=== PATIENT | male | born 1960 ===

== ENCOUNTER 2024-09-15 15:47 | Inpatient (IN) | payer MEDICAID, SELFPAY ==
[2024-09-15] VITALS (163 sets, daily range): BP systolic 146–219; BP diastolic 52–96; PULSE 61–76; RESP 13–26; TEMP 36.8; O2SAT 95–98
--- NOTE | 2024-09-15 15:45 | RT.EKG_ITS ---
APPROVED REPORT Exam: Resting ECG Reason for Exam: weakness Patient Location: E HR:71 bpm ECG Measurements Heart Rate 71 AXIS OK 141 P 61 QRSd 83 QRS 53 QT 406 T 212 QTc 440 Conclusion Sinus rhythm, rate 71 No interval abnormalities No STEMI T wave inversion diffuse leads, no priors available for comparison
--- NOTE | 2024-09-15 16:00 | DI.RAD_ITS ---
Exam(s) XR CHEST 2V PA LATERAL EXAM: XR CHEST 2V PA LATERAL CLINICAL HISTORY: dizziness during ambulation TECHNIQUE: 2D digital imaging was performed of the chest. Two images were obtained. PA and lateral views were obtained. COMPARISON: No exams were available for comparison FINDINGS: MEDIASTINUM: Normal. HEART: Normal. PULMONARY VASCULATURE: Normal. LUNGS: Clear. PLEURAL SPACE: No pleural effusion or pneumothorax. BONE:Within normal limits for the patient's age. There are old healed left rib fractures. There is an old healed left clavicular fracture. OTHER FINDINGS:Normal. IMPRESSION: No acute pulmonary findings. DATA REPOSITORY: RADIATION DOSE DELIVERED:
--- NOTE | 2024-09-15 16:23 | ED.GENADUL_ITS ---
Discharge Plan Discharge Details Chief Complaint: Dizzy/Sync Primary Care Provider: Nila,Local ED Provider: Alma Yao Home Meds and New Rx's Prescriptions: No Action No Known Home Meds HPI General Date/Time Provider Initiated Documentation: 09/15/24 15:51 . HPI Narrative: Venkat is a 63year old male who presents to the emergency department today for evaluation of generalized dizziness (described as all over weakness like he can't stay up). He reports that this started on Wednesday night when he was shoveling snow. He feels fine when he is sitting, but feels generally weak and has trouble walking, says he feels like he cannot stay upright. No other aggravating factors identified. Denies associated fever/chills, unusual headaches, vision changes, congestion, sore throat, chest pain, shortness of breath, dyspnea with exertion, cough, nausea/vomiting, change in p.o. intake, abdominal pain, change in bowel or bladder function, extremity weakness. He has not seen a medical provider in at least 5 years, has no known chronic medical conditions. He does drink a 12 pack of beer (12 oz cans) every night starting at 3 PM; says this has been ongoing for a long time. Also smokes cigarettes. Denies other substance use. Physical exam unremarkable. Venkat is alert and oriented x 4, in no acute distress. PERRL, EOMs intact. Facial strength normal. Moist mucous membranes. Normal finger to finger, rapid alternating movements, patellar reflexes 2+, 5/5 muscle strength to upper and lower extremities, sensation grossly intact. Mitra l heart sounds. Easy work of breathing, lung sounds clear bilaterally. Abdomen is soft, nondistended, nontender to palpation. On ambulation Venkat is noted to have a wide-based gait and begins to list to the right after approximately 10 steps. Hypertension noted at triage, 194/95. D/dx includes but is not limited to: CVA (outside window for thrombolysis), neoplasm/mass, Cardiac arrhythmia, ACS, severe anemia, kidney or liver dysfunction, electrolyte imbalance, dehydration, viral illness, occult infection such as pneumonia or UTI I independently interpreted the following tests: EKG notable for diffuse inverted T waves to leads II, III, V5, and V6, otherwise normal sinus rhythm with rate 71, normal intervals. No previous available for comparison. Labs all reassuring: CBC, CMP, magnesium, TSH, ammonia all unremarkable. Troponins flat. CTA performed, significant for severe stenosis of the right ICA and origin of the left subclavian artery. Discussed case with [place]ene[place]rologist [place] [facility] [place] he reviewed patient's images and evaluated patient. He does not believe stenosis is the cause of acute symptoms, recommends admission for telemetry, physical therapy, and MRI. Recommends as pirin 81 mg and Plavix 300 mg for this evening. Discussed case with Dr. Rodriguez, hospitalist. Recommends transfer for neurology/vascular for further evaluation/management due to severe stenosis noted on CTA. 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 Handoff report given to Dr. Cutler, overnight attending. Related Data Home Medications ?Medication ?Instructions ?Recorded ?Confirmed Unknown [No Known Home Meds] 09/15/24 09/15/24 Allergies Allergy/AdvReac Type Severity Reaction Status Date / Time No Known Allergies Allergy Unverified 09/15/24 16:02 General Stated Complaint: Dizzy/Sync MARITZA: 3 Review of Systems Narrative: see HPI Exam Const General: cooperative, comfortable, no acute distress and well developed Nutritional Appearance: average body habitus Orientation: alert and oriented x3 HENMT Head: normal to inspection Ears: hearing grossly normal bilaterally, external ears normal and TM's normal bilaterally General nose exam: external nose normal Face and sinus: normal facial exam and face symmetric Mouth: oral mucosae normal Neck Neck: normal visual inspection Resp Effort & Inspection: normal respiratory effort and able to speak in complete sentences Auscultation: clear to auscultation bilaterally Cardio Rate: regular rate Rhythm: regular rhythm GI Inspection: normal to inspection and non-distended Palpation: soft, not firm, not rigid and nontender Neuro General: patient alert, patient oriented x3, tone normal, moves all extremities and no focal motor deficits Cranial Nerves: PERRL, EOM intact bilaterally, no nystagmus and facial strength normal Cognition: normal cognition Speech: speech normal Gait: wide-based and other (listing towards R side when walking, poor balance) Motor: muscle tone normal throughout and strength 5/5 throughout Sensory Exam: no sensory deficits noted Coordination: [id number] test normal and rapid alternating movement UE normal Extrem General: normal to inspection Course Vital Signs Vital signs: Vital Signs Temperature 36.8 C 09/15/24 15:51 Pulse 71 09/15/24 15:51 Respiratory Rate 20 09/15/24 15:51 Blood Pressure 194/95 H 09/15/24 15:51 Pulse Oximetry 95 09/15/24 15:51 Temperature 36.8 C 09/15/24 15:51 Pulse 71 09/15/24 15:51 Respiratory Rate 20 09/15/24 15:51 Blood Pressure 194/95 H 09/15/24 15:51 Pulse Oximetry 95 09/15/24 15:51 Pain Level 0 09/15/24 15:51 Medical Decision Making Imaging Data Radiologic Study: Radiologist's impression: Exam(s) XR CHEST 2V PA LATERAL EXAM: XR CHEST 2V PA LATERAL CLINICAL HISTORY: dizziness during ambulation TECHNIQUE: 2D digital imaging was performed of the chest. Two images were obtained. PA and lateral views were obtained. COMPARISON: No exams were available for comparison FINDINGS: MEDIASTINUM: Normal. HEART: Normal. PULMONARY VASCULATURE: Normal. LUNGS: Clear. PLEURAL SPACE: No pleural effusion or pneumothorax. BONE:Within normal limits for the patient's age. There are old healed left rib fractures. There is an old healed left clavicular fracture. OTHER FINDINGS:Normal. IMPRESSION: No acute pulmonary findings. Radiologic Study #2: Radiologist's impression: PROCEDURE INFORMATION: Exam: CTA Head Without And With Contrast, Arteriography Exam date and time: 09/15/2024 6:39 PM Age: 63 years old Clinical indication: Other: Abnormal gait, dizziness, leaning to R side TECHNIQUE: Imaging protocol: Computed tomographic angiography of the head without and with contrast. Exam focused on the arteries. 3D rendering (Not supervised by radiologist): MIP and/or 3D reconstructed images were created by the technologist. Contrast material: OMNIPAQUE 350; Contrast volume: 70 ml; Contrast route: INTRAVENOUS (IV); COMPARISON: No relevant prior studies available. FINDINGS: ANTERIOR CIRCULATION: Right internal carotid artery: Intracranial segment is patent with no significant stenosis or occlusion. No aneurysm. Right middle cerebral artery: No occlusion or significant stenosis. No aneurysm. Right anterior cerebral artery: No occlusion or significant stenosis. No aneurysm. Left internal carotid artery: Intracranial segment is patent with no significant stenosis. No aneurysm. Left middle cerebral artery: No occlusion or significant stenosis. No aneurysm. Left anterior cerebral artery: No occlusion or significant stenosis. No aneurysm. POSTERIOR CIRCULATION: Right vertebral artery: No occlusion or significant stenosis. No aneurysm. Left vertebral artery: No occlusion or significant stenosis. No aneurysm. Basilar artery: No occlusion or significant stenosis. No aneurysm. Right posterior cerebral artery: No occlusion or significant stenosis. No aneurysm. Left posterior cerebral artery: No occlusion or significant stenosis. No aneurysm. HEAD: Brain: Normal. No hemorrhage. Unremarkable white matter. No mass effect. Cerebral ventricles: Normal. No ventriculomegaly. Bones: Unremarkable. No acute fracture. Paranasal sinuses: Visualized sinuses are normal. No fluid levels. Mastoid air cells: Visualized mastoids are normal. No mastoid effusion. Soft tissues: Unremarkable. IMPRESSION: 1. No large vessel occlusion. 2. Unremarkable CT head. PROCEDURE INFORMATION: Exam: CTA Neck Without And With Contrast Exam date and time: 09/15/2024 6:39 PM Age: 63 years old Clinical indication: Other: Abnormal gait, dizziness, leaning to R side TECHNIQUE: Imaging protocol: Computed tomographic angiography of the neck without and with contrast. Exam focused on the cervical segments of the vasculature. 3D rendering (Not supervised by radiologist): MIP and/or 3D reconstructed images were created by the technologist. Contrast material: OMNIPAQUE 350; Contrast volume: 70 ml; Contrast route: INTRAVENOUS (IV); COMPARISON: CR XR CHEST 2V PA LATERAL 09/15/2024 4:48 PM FINDINGS: Right common carotid artery: No stenosis. No dissection or occlusion. Right internal carotid artery: There is severe (approximately 75%) stenosis in the proximal right internal carotid artery. Right external carotid artery: No occlusion or stenosis of the origin. Left common carotid artery: No stenosis. No dissection or occlusion. Left internal carotid artery: No stenosis of the extracranial segment. No dissection or occlusion. Left external carotid artery: No occlusion or stenosis of the origin. Right vertebral artery: No stenosis. No dissection or occlusion. Left vertebral artery: No stenosis. No dissection or occlusion. Left subclavian artery: There is severe (approximately 70%) stenosis of the origin of the left subclavian artery. Soft tissues: Normal. No significant soft tissue swelling. Bones/joints: Mild degenerative changes at the C3-C4 disc level. Cervical spine is otherwise unremarkable. IMPRESSION: 1. Severe stenosis of the right ICA. No significant stenosis in the left ICA 2. Patent bilateral vertebral arteries 3. 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 REFERENCES: NASCET CRITERIA. The degree of jessica nosis in the cervical segment of the internal carotid artery is based on NASCET criteria. Normal is no stenosis. Mild is less than 50% stenosis. Moderate is 50- 69% stenosis. Severe is 70% to 99% stenosis. Total occlusion is no detectable patent lumen. Quality:[facility] Health Related Social Needs: No Data to Display [facility] Social History Smoking/Tobacco Use Status: Current every day Tobacco Type: cigarettes Smoking packs per day: 50 Smoking cigarettes per day: 1,000.0 Tobacco: How many years used: 50 Smoking risk assessment performed?: Yes Alcohol Intake: current Alcohol Intake frequency: 3 or more drinks per day Alcohol type: beer Drug use: Never
[2024-09-15 16:41] LABS: Abs Immature Grans 0.03 10^3/uL (0.0-0.06); Absolute Basophil Count 0.05 10^3/uL (0.0-0.2); Absolute Eosinophil Count 0.09 10^3/uL (0.0-0.7); Absolute Lymphocyte Count 1.33 10^3/uL (1.2-3.4); Absolute Monocyte Count 0.74 10^3/uL (0.1-0.8); Absolute Neutrophil Count 6.07 10^3/uL (1.2-6.7); Basophils % 0.6 %; Eosinophils % 1.1 %; HCT 48.2 % (40.0-50.0); HGB 16.3 g/dL (13.5-17.5); Immature Grans % 0.4 %; MCHC 33.8 % (32.0-36.0); MCV 92 fL (80-95); MPV 10.9 fL (8.0-11.0); Monocytes % 8.9 %; Platelet Count 236 10^3/uL (130-400); RBC 5.25 10^6/uL (4.36-5.78); RDW 12.5 % (11.8-14.1); RDW-SD 42.6 fL; WBC 8.31 10^3/uL (4.4-10.8)
[2024-09-15 17:02] LABS: ALT 32 U/L (16-63); AST 22 U/L (15-37); Albumin 3.7 g/dL (3.4-5.0); Alkaline Phosphatase 98 U/L (46-116); BUN 20 mg/dL (7-18); Bilirubin, Total 0.63 mg/dL (0.2-1.0); Calcium 9.4 mg/dL (8.5-10.1); Chloride 102 mmol/L (98-107); Estimated GFR 85.63 (mL/min/1.73m2); Glucose 112 mg/dL (74-106); Magnesium 2.1 mg/dL (1.8-2.4); Potassium 3.6 mmol/L (3.5-5.1); Sodium 144 mmol/L (136-145); TSH 0.42 uIU/mL (0.36-3.74); Troponin I 19 ng/L (<or=76)
[2024-09-15] MEDS: Normal Saline - Diluent 50 ML VIAL IJ (18:36)
[2024-09-15] MEDS: Omnipaque 350 MG/ML 100 ML BTL 70 ML IJ (18:36)
--- NOTE | 2024-09-15 19:05 | DI.CT_ITS ---
Exam(s) CT BRAIN NECK CTA EXAM: CT BRAIN NECK CTA CLINICAL HISTORY: abnormal gait, dizziness, leaning to R side. TECHNIQUE: Imaging Protocol: Axial CT angiography was performed with multi-slice acquisition and mu lti-planar and MIP reconstructions. CONTRAST MATERIAL: Intravenous: Omnipaque 350 Contrast volume:70 ml COMPARISON: No exams were available for comparison FINDINGS: CT Head W/O and W contrast: Ventricles and Extra axial spaces: Normal in size and morphology for the patient's age. Hemorrhage: None. Cerebral parenchyma: No evidence of acute infarct or mass. Old right basal ganglia lacunar infarcts. Midline shift: None. Brainstem/Cerebellum: No acute findings. Old right inferior cerebellar infarct. Other patchy low area s of low density in the left cerebellar hemisphere with old infarcts.. Calvarium: Normal. Visualized Paranasal sinuses/Mastoids: Right maxillary sinus mucosal thickening and mucous retention. Soft Tissues: Unremarkable. Enhancement: Normal. CTA Brain W: Internal Carotid Arteries: Petrous: Normal. Cavernous: Normal. Cerebral: Normal. Middle Cerebral Arteries: Right: No aneurysm, occlusion or significant stenosis. Left: No aneurysm, occlusion or significant stenosis. Anterior Cerebral Arteries: Right: No aneurysm, occlusion or significant stenosis. Left: No aneurysm, occlusion or significant stenosis. Posterior cerebral Arteries: Right: No aneurysm, occlusion or significant stenosis. Left: No aneurysm, occlusion or significant stenosis. Vertebral Arteries: Right: No aneurysm, occlusion or significant stenosis. Left: No aneurysm, occlusion or significant stenosis. Basilar Artery: No aneurysm, occlusion or significant stenosis. CTA Neck W: Common Carotid: Right: No dissection, occlusion or significant stenosis. Left: Calcification at the origin without significant stenosis. No dissection, occlusion or significa nt stenosis. External Carotid: Right: No dissection, occlusion or significant stenosis. Left: No dissection, occlusion or significant stenosis. Internal Carotid: Right: Calcific and noncalcific plaque causing significant stenosis of approximately 75 percent proxi rivas. Normal diameter distal to this level. No dissection.. Left: Mild calcific plaque. No dissection, occlusion or significant stenosis. Vertebral Artery: Right: No dissection, occlusion or significant stenosis. Left: No dissection, occlusion or significant stenosis. Subclavian arteries: Severe stenosis, proximally 70 percent, at the origin of the left subclavian art megan. Lung Apices: No acute findings. Mild emphysematous changes. Bones: No acute abnormality. Mild degenerative changes. Soft Tissues: Normal. IMPRESSION: 1. CTA brain: Normal CTA examination of the [place]. 2. Head CT: Old bilateral basal ganglia and bilateral cerebellar infarcts. No evidence of acute infar ct or hemorrhage. 3. CTA neck: Mixed calcific and noncalcific plaque at the origin of the right internal carotid artery causing severe stenosis, approximately 75 percent. Severe stenosis of the origin of the left subclav bharti artery, approximately 75 percent. RADIATION DOSE DELIVERED: Total DLP DATA REPOSITORY: All CT scans at this facility are submitted to the National Radiology Data Registry (NRDR) Dose Index Registry (DIR) with the [employer] (ACR). RADIATION OPTIMIZATION: All CT scans at this facility use at least one of these dose optimization te chniques: automated exposure control; mA and/or kV adjustment per patient size (includes targeted exa ms where dose is matched to clinical indication); or iterative reconstruction.
[2024-09-15 19:14] LABS: Ammonia < 10 umol/L (11-32)
--- NOTE | 2024-09-15 20:18 | DI.VRAD_ITS ---
PROCEDURE INFORMATION: Exam: CTA Head Without And With Contrast, Arteriography Exam date and time: 09/15/2024 6:39 PM Age: 63 years old Clinical indication: Other: Abnormal gait, dizziness, leaning to R side TECHNIQUE: Imaging protocol: Computed tomographic angiography of the head without and with contrast. Exam focused on the arteries. 3D rendering (Not supervised by radiologist): MIP and/or 3D reconstructed images were created by the technologist. Contrast material: OMNIPAQUE 350; Contrast volume: 70 ml; Contrast route: INTRAVENOUS (IV); COMPARISON: No relevant prior studies available. FINDINGS: ANTERIOR CIRCULATION: Right internal carotid artery: Intracranial segment is patent with no significant stenosis or occlusion. No aneurysm. Right middle cerebral artery: No occlusion or significant stenosis. No aneurysm. Right anterior cerebral artery: No occlusion or significant stenosis. No aneurysm. Left internal carotid artery: Intracranial segment is patent with no significant stenosis. No aneurysm. Left middle cerebral artery: No occlusion or significant stenosis. No aneurysm. Left anterior cerebral artery: No occlusion or significant stenosis. No aneurysm. POSTERIOR CIRCULATION: Right vertebral artery: No occlusion or significant stenosis. No aneurysm. Left vertebral artery: No occlusion or significant stenosis. No aneurysm. Basilar artery: No occlusion or significant stenosis. No aneurysm. Right posterior cerebral artery: No occlusion or significant stenosis. No aneurysm. Left posterior cerebral artery: No occlusion or significant stenosis. No aneurysm. HEAD: Brain: Normal. No hemorrhage. Unremarkable white matter. No mass effect. Cerebral ventricles: Normal. No ventriculomegaly. Bones: Unremarkable. No acute fracture. Paranasal sinuses: Visualized sinuses are normal. No fluid levels. Mastoid air cells: Visualized mastoids are normal. No mastoid effusion. Soft tissues: Unremarkable. IMPRESSION: 1. No large vessel occlusion. 2. Unremarkable CT head. PROCEDURE INFORMATION: Exam: CTA Neck Without And With Contrast Exam date and time: 09/15/2024 6:39 PM Age: 63 years old Clinical indication: Other: Abnormal gait, dizziness, leaning to R side TECHNIQUE: Imaging protocol: Computed tomographic angiography of the neck without and with contrast. Exam focused on the cervical segments of the vasculature. 3D rendering (Not supervised by radiologist): MIP and/or 3D reconstructed images were created by the technologist. Contrast material: OMNIPAQUE 350; Contrast volume: 70 ml; Contrast route: INTRAVENOUS (IV); COMPARISON: CR XR CHEST 2V PA LATERAL 09/15/2024 4:48 PM FINDINGS: Right common carotid artery: No stenosis. No dissection or occlusion. Right internal carotid artery: There is severe (approximately 75%) stenosis in the proximal right internal carotid artery. Right external carotid artery: No occlusion or stenosis of the origin. Left common carotid artery: No stenosis. No dissection or occlusion. Left internal carotid artery: No stenosis of the extracranial segment. No dissection or occlusion. Left external carotid artery: No occlusion or stenosis of the origin. Right vertebral artery: No stenosis. No dissection or occlusion. Left vertebral artery: No stenosis. No dissection or occlusion. Left subclavian artery: There is severe (approximately 70%) stenosis of the origin of the left subclavian artery. Soft tissues: Normal. No significant soft tissue swelling. Bones/joints: Mild degenerative changes at the C3-C4 disc level. Cervical spine is otherwise unremarkable. IMPRESSION: 1. Severe stenosis of the right ICA. No significant stenosis in the left ICA 2. Patent bilateral vertebral arteries 3. 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 REFERENCES: NASCET CRITERIA. The degree of stenosis in the cervical segment of the internal carotid artery is based on NASCET criteria. Normal is no stenosis. Mild is less than 50% stenosis. Moderate is 50-69% stenosis. Severe is 70% to 99% stenosis. Total occlusion is no detectable patent lumen. Dictated and Authenticated by: Malick Cardona MD. Orderin Janak Marquez MD
[2024-09-15] MEDS: Nicotine 2 MG GUM CH (20:22)
[2024-09-15 20:32] LABS: Troponin I 18 ng/L (<or=76)
[2024-09-15 21:37] LABS: ETHANOL BLOOD < 3.0 mg/dL (<10)
[2024-09-15] MEDS: Clopidogrel 300 MG TAB PO (23:16)
[2024-09-15] MEDS: Aspirin 81 MG CHEW PO (23:16)
[2024-09-16] VITALS (111 sets, daily range): BP systolic 161–222; BP diastolic 54–104; PULSE 58–104; RESP 12–24; TEMP 36.7–37.3; O2SAT 92–98
--- NOTE | 2024-09-16 00:18 | ED.PROG_ITS ---
Date of service: 09/16/24 Time of Service: 00:18 Medical Decision Making Patient signed out to me pending possible transfer versus admission. He had presented to the ED for difficulty ambulating, ataxia, falls. He is alcohol dependent drinking about 12 beers a day. He was seen by teleneurology for possible stroke. Imaging shows critical stenosis right internal carotid and left subclavian. He has been given aspirin and Plavix. He needs admission for continued TIA/CVA workup. He also requires at some point vascular consult. However, given that his symptoms appear to be all posterior either cerebellum or posterior column given that his complaints are ataxia and falls, unlikely that the stenosis is the culprit but would need to be addressed. Short-term he needs CIWA and neurochecks every 2 hours. Currently not exhibiting any signs of withdrawal but does have pretty significantly elevated blood pressure. Given that he has not had any medical care for years would not urgently lower this. We have called multiple hospitals in the area including [facility], [facility], [place], [facility], [facility], [facility]?all of which are at capacity. I have re-discussed with hospitalist here. Will plan admission to ICU for CIWA scoring and neurochecks. Should probably start cholesterol and blo od pressure management, PT eval, close monitoring. [facility] did feel they may be able to take him this weekend. Lab Data Lab results reviewed: Yes I reviewed the patient's lab results. Discharge Plan Disposition Patient Disposition: Admit to [facility] Condition: Poor Discharge Details Clinical Impression: Ataxia, Hypertension, Alcohol use disorder, Falls, Carotid stenosis, right, Subclavian artery stenosis, left Primary Care Provider: No,Local ED Provider: Gary Cutler Home Meds and New Rx's Prescriptions: No Action No Known Home Meds
[2024-09-16 00:23] LABS: PTT Activated 23.2 sec (20.6-30.2); Prothrombin Time 10.4 sec (9.1-11.1)
[2024-09-16] MEDS: Lisinopril 5 MG TAB PO ×2 (00:59→08:45)
--- NOTE | 2024-09-16 01:17 | HPE_ITS ---
Date of service: 09/15/24 Time of Service: 23:50 Assessment and Plan Assessment and plan (1) Carotid stenosis, right: Status: Acute Assessment and plan: He has a severe carotid stenosis on the right. At this point he does not appear to have a CVA though an MRI would be a little more sensitive. The symptoms we has are more consistent with posterior circulation/cerebellar disorder that given the extent of his cerebrovascular disease I am concerned that the carotid stenosis may be affecting the overall flow. Vascular consultation as soon as available. (2) Subclavian artery stenosis, left: Status: Acute Assessment and plan: 70% stenosis of left subclavian artery. He is apparently not symptomatic from this but it is overall concerning. Starting aspirin and Plavix as well as atorvastatin. (3) Ataxia: Status: Acute Assessment and plan: Sudden onset of ataxia on 09/13/2024. While he does have heavy alcohol consumption which could cause an ataxia this seem to come on rather suddenly so cerebrovascular causes predominate. It makes sense there would be a posterior circulation problem though that was not seen on CT scan. MRI of the head when available. Aspirin and Plavix and atorvastatin. (4) Falls: Status: Acute Assessment and plan: Frequent falls secondary to alcohol use and new onset ataxia. Thiamine folate and multivitamin. Physical therapy consult. (5) Alcohol use disorder: Status: Acute Assessment and plan: Regular daily alcohol use in the form of beers, 10 to 11/day. He denies any past history of withdrawal signs or symptoms. Will start on CIWA scoring, lorazepam protocol. He is asymptomatic at this time, apparently abstinent for 72 hours. (6) Hypertension: Status: Chronic Assessment and plan: Uncontrolled blood pressure on no medications. Will start lisinopril 5 mg p.o. daily. History of Present Illness History of Present Illness Chief Complaint: Ataxia/severe carotid stenosis N arrative: 63-year-old male that does not seek medical care routinely began to have worsening problems with ataxia starting 09/13/2024. He notes when he tried to walk he would fall frequently. He described dizziness and a feeling of weakness all over such that he could not stand up. He feels fine when he is sitting. He had a little bit of a headache on Wednesday but none currently. He smokes about 1 to 1-1/2 packs/day but stopped on Wednesday. He drinks 10-11 beers daily starting in the morning, but has not had a drink since Wednesday. Workup in the ED included a CTA of his head and neck. There was no acute stroke but severe carotid stenosis on the right internal carotid artery (75%), and severe stenosis of the left subclavian artery (70%). The concern was he had symptomatic severe carotid stenosis. neurology was consulted. They could not take him in transfer, they recommended Plavix and aspirin, and an MRI of the brain. We have looked elsewhere and tentatively may be able to transfer him to [facility] in [place] tomorrow. Admit to the ICU for frequent vital signs and monitoring. Review of Systems Narrative: He is generally quite active working on cutting wood and odd jobs around the house. 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 He denies any problems with chest pain or shortness of breath. Despite being a lifelong smoker he has not had any chronic respiratory problems. He has never had any cardiac problems. The new onset ataxia and dizziness is his only problem. [facility] All Active Problems (Updated 09/16/24 @ 00:28 by Gary Cutler MD) Subclavian artery stenosis, left (Acute) Carotid stenosis, right (Acute) Falls (Acute) Alcohol use disorder (Acute) Hypertension (Chronic) Ataxia (Acute) Social History Smoking/Tobacco Use Status: Current every day Tobacco Type: cigarettes Smoking packs per day: 50 Smoking cigarettes per day: 1,000.0 Tobacco: How many years used: 50 Smoking risk assessment performed?: Yes Alcohol Intake: current Alcohol Intake frequency: 3 or more drinks per day Alcohol type: beer Drug use: Never Meds Allergies and Home Medications Allergies Allergy/AdvReac Type Severity Reaction Status Date / Time No Known Allergies Allergy Unverified 09/15/24 16:02 Home Medications ?Medication ?Instructions ?Recorded ?Confirmed ?Type Unknown [No Known Home Meds] 09/15/24 09/15/24 History Exam Narrative Exam Narrative: On exam he is unshaven with a very long galvan including a braided portion that is over 2 feet long. He has no facial asymmetry that I can detect. Listening over his carotids I do not detect a bruit on the right or left. Heart sounds are regular and I do not detect a murmur. Lung sounds are clear on the right and left. Abdomen is overall nontender. The lower extremities show no evidence of edema and appear to be well-perfused bilaterally. Neurologically he attends well, speech is clear, he moves all extremities without evidence of focal weakness. Results Imaging Additional studies: CT angiogram of the head showed no abnormality. CT angiogram of the neck showed a 75% stenosis of the right internal carotid artery and a 70% stenosis of the left subclavian artery. Labs 09/15/24 16:28 09/15/24 16:28 Labs: Laboratory Results - last 24 hr 09/15/24 09/15/24 09/15/24 16: 17:10 18:58 WBC 8.31 RBC 5.25 Hgb 16.3 Hct 48.2 MCV 92 MCH 31.0 MCHC 33.8 RDW 12.5 Plt Count 236 MPV 10.9 Immature Gran % 0.4 Neutrophils % 73.0 Lymphocytes % 16.0 Monocytes % 8.9 Eosinophils % 1.1 Basophils % 0.6 Nucleated RBC % 0.0 Absolute Neutrophils 6.07 Absolute Lymphocytes 1.33 Absolute Monocytes 0.74 Absolute Eosinophils 0.09 Absolute Basophils 0.05 PT INR APTT Sodium 144 Potassium 3.6 Chloride 102 Carbon Dioxide 30.0 Anion Gap 12.0 H BUN 20 H Creatinine 1.0 Est GFR (CKD-EPI 2020) 85.63 Glucose 112 H Calcium 9.4 Magnesium 2.1 Total Bilirubin 0.63 AST 22 ALT 32 Alkaline Phosphatase 98 Ammonia < 10 L Troponin I 19 Cancelled Total Protein 8.0 Albumin 3.7 TSH 0.42 Ethyl Alcohol < 3.0 09/15/24 09/16/24 20:10 00:04 WBC RBC Hgb Hct MCV MCH MCHC RDW Plt Count MPV Immature Gran % Neutrophils % Lymphocytes % Monocytes % Eosinophils % Basophils % Nucleated RBC % Absolute Neutrophils Absolute Lymphocytes Absolute Monocytes Absolute Eosinophils Absolute Basophils PT 10.4 INR 1.0 APTT 23.2 Sodium Potassium Chloride Carbon Dioxide Anion Gap BUN Creatinine Est GFR (CKD-EPI 2020) Glucose Calcium Magnesium Total Bilirubin AST ALT Alkaline Phosphatase Ammonia Troponin I 18 Total Protein Albumin TSH Ethyl Alcohol Last Vital Signs Temp 36.8 C 09/15/24 15:51 Pulse 70 09/16/24 00:01 Resp 17 09/16/24 00:12 BP 217/81 H 09/16/24 00:01 Pulse Ox 95 09/16/24 00:12 Time Spent Time spent with Patient: 55-74 minutes Time was spent: preparing to see the patient(eg.review tests), obtaining and/or reviewing separately otained hiistory, ordering medications,tests, procedures, referring, communicating with other health director of medicare, indepentently interpreting results and counseling the patient
--- NOTE | 2024-09-16 05:40 | W.PC.ACHO ---
Registration Status: Primary Language: Preferred Language: ED Information & Data Chief Complaint Dizzy/Sync 09/15/24 16:30 Triage Note presents with dizziness 09/15/24 15:51 while ambulating since Wednesday night. denies CP, SOB. vomited once on Wednesday night after feeling dizzy Most Recent Vital Signs Temperature 37.3 C 09/16/24 03:29 Temperature Source Temporal Artery Scan 09/16/24 03:29 Pulse 59 L 09/16/24 05:01 Pulse 59 L 09/16/24 05:01 Respiratory Rate 15 09/16/24 05:01 Respiratory Effort Normal 09/16/24 03:29 Respiratory Depth Normal 09/16/24 03:29 Respiratory Pattern Normal 09/16/24 03:29 Blood Pressure 191/88 H 09/16/24 05:01 Blood Pressure Mean 114 09/16/24 05:01 Pulse Oximetry 93 09/16/24 05:01 Oxygen Delivery Method Room Air 09/16/24 03:29 Oxygen Flow Rate 0 09/16/24 03:29 Pain Level 0 09/16/24 03:29 Comment Standing (Left) 09/16/24 04:07 Allergies No Known Allergies Allergy (Unverified 09/15/24 16:02) Precautions Isolation Standard precaution 09/15/24 16:00 Active Medications Generic Name Dose Route Start Last Admin Trade Name Vicki PRN Reason Stop Dose Admin Iohexol 70 ml 09/15/24 18:45 09/15/24 18:36 Omnipaque 350 Mg/Ml 100 Ml Btl IJ 10/15/24 23:59 70 ml DIRECTED HOMAR Administration Sodium Chloride 50 ml 09/15/24 18:45 09/15/24 18:36 Normal Saline - Diluent 50 Ml Vial IJ 50 ml .FOR DI USE HOMAR Administration IV IV Catheter Type [Right Saline Lock Antecubital] IV Catheter Gauge [Right 18 Antecubital] Diet Orders Category Date Time Status Heart Healthy Eating [DIET] Nutrition 09/16/24 Breakfast Active Diagnostics 09/16/24 09/16/24 09/15/24 Range/Units 05:35 00:04 20:10 WBC Pending (4.4-10.8) 10^3/uL RBC Pending (4.36-5.78) 10^6/uL Hgb Pending (13.5-17.5) g/dL Hct Pending (40.0-50.0) % MCV Pending (80-95) fL MCH Pending (27.0-33.0) pg MCHC Pending (32.0-36.0) % RDW Pending (11.8-14.1) % Plt Count Pending (130-400) 10^3/uL MPV Pending (8.0-11.0) fL Immature Gran % Pending % Neutrophils % Pending % Lymphocytes % Pending % Monocytes % Pending % Eosinophils % Pending % Basophils % Pending % Nucleated RBC % (0.0-0.3) % Absolute Neutrophils Pending (1.2-6.7) 10^3/uL Absolute Lymphocytes Pending (1.2-3.4) 10^3/uL Absolute Monocytes Pending (0.1-0.8) 10^3/uL Absolute Eosinophils Pending (0.0-0.7) 10^3/uL Absolute Basophils Pending (0.0-0.2) 10^3/uL PT 10.4 (9.1-11.1) sec INR 1.0 (0.9-1.1) APTT 23.2 (20.6-30.2) sec Sodium Pending (136-145) mmol/L Potassium Pending (3.5-5.1) mmol/L Chloride Pending (98-107) mmol/L Carbon Dioxide Pending (21.0-32.0) mmol/L Anion Gap Pending (3-11) mmol/L BUN Pending (7-18) mg/dL Creatinine Pending (0.70-1.30) mg/dL Est GFR (CKD-EPI 2020) Pending (mL/min/1.73m2) Glucose Pending (74-106) mg/dL Calcium Pending (8.5-10.1) mg/dL Magnesium (1.8-2.4) mg/dL Total Bilirubin Pending (0.2-1.0) mg/dL AST Pending (15-37) U/L ALT Pending (16-63) U/L Alkaline Phosphatase Pending (46-116) U/L Ammonia (11-32) umol/L Troponin I 18 (<or=76) ng/L Total Protein Pending (6.4-8.2) g/dL Albumin Pending (3.4-5.0) g/dL TSH (0.36-3.74) uIU/mL Ethyl Alcohol (<10) mg/dL 09/15/24 09/15/24 09/15/24 Range/Units 18:58 17:10 16:28 WBC 8.31 (4.4-10.8) 10^3/uL RBC 5.25 (4.36-5.78) 10^6/uL Hgb 16.3 (13.5-17.5) g/dL Hct 48.2 (40.0-50.0) % MCV 92 (80-95) fL MCH 31.0 (27.0-33.0) pg MCHC 33.8 (32.0-36.0) % RDW 12.5 (11.8-14.1) % Plt Count 236 (130-400) 10^3/uL MPV 10.9 (8.0-11.0) fL Immature Gran % 0.4 % Neutrophils % 73.0 % Lymphocytes % 16.0 % Monocytes % 8.9 % Eosinophils % 1.1 % Basophils % 0.6 % Nucleated RBC % 0.0 (0.0-0.3) % Absolute Neutrophils 6.07 (1.2-6.7) 10^3/uL Absolute Lymphocytes 1.33 (1.2-3.4) 10^3/uL Absolute Monocytes 0.74 (0.1-0.8) 10^3/uL Absolute Eosinophils 0.09 (0.0-0.7) 10^3/uL Absolute Basophils 0.05 (0.0-0.2) 10^3/uL PT (9.1-11.1) sec INR (0.9-1.1) APTT (20.6-30.2) sec Sodium 144 (136-145) mmol/L Potassium 3.6 (3.5-5.1) mmol/L Chloride 102 (98-107) mmol/L Carbon Dioxide 30.0 (21.0-32.0) mmol/L Anion Gap 12.0 H (3-11) mmol/L BUN 20 H (7-18) mg/dL Creatinine 1.0 (0.70-1.30) mg/dL Est GFR (CKD-EPI 2020) 85.63 (mL/min/1.73m2) Glucose 112 H (74-106) mg/dL Calcium 9.4 (8.5-10.1) mg/dL Magnesium 2.1 (1.8-2.4) mg/dL Total Bilirubin 0.63 (0.2-1.0) mg/dL AST 22 (15-37) U/L ALT 32 (16-63) U/L Alkaline Phosphatase 98 (46-116) U/L Ammonia < 10 L (11-32) umol/L Troponin I Cancelled 19 (<or=76) ng/L Total Protein 8.0 (6.4-8.2) g/dL Albumin 3.7 (3.4-5.0) g/dL TSH 0.42 (0.36-3.74) uIU/mL Ethyl Alcohol < 3.0 (<10) mg/dL Intake and Output - 24 Hour Total 09/15/24 15:47 thru 09/16/24 03:29 Weight 60.9 kg Falls Risk Assessment History of Falls No History 09/16/24 03:29 Contributing Factors Unstable,Medications 09/16/24 03:29 Ambulatory Aids Independent 09/16/24 03:29 Tubes/Lines W/no contributing factors 09/16/24 03:29 Gait Evaluation W/no contributing factors 09/16/24 03:29 Cognition No cognitive impairment 09/16/24 03:29 Fall Total Score 26 09/16/24 03:29 Level of Risk Moderate Risk 09/16/24 03:29 Problems Subclavian artery stenosis, left (Acute) Carotid stenosis, right (Acute) Falls (Acute) Alcohol use disorder (Acute) Hypertension (Chronic) Ataxia (Acute) v v v v v v v v v Sending and/or Receiving Nurses: Please use comment section below to note any information pertinent to the patient hand-off not included above. Information / Comments: Report received from: Alea Banegas
[2024-09-16 05:44] LABS: Abs Immature Grans 0.04 10^3/uL (0.0-0.06); Absolute Basophil Count 0.06 10^3/uL (0.0-0.2); Absolute Eosinophil Count 0.14 10^3/uL (0.0-0.7); Absolute Lymphocyte Count 0.98 10^3/uL (1.2-3.4); Absolute Neutrophil Count 5.43 10^3/uL (1.2-6.7); Basophils % 0.8 %; Eosinophils % 1.9 %; HCT 44.8 % (40.0-50.0); Immature Grans % 0.5 %; Lymphocytes % 13.2 %; MCH 31.1 pg (27.0-33.0); MCHC 33.5 % (32.0-36.0); MCV 93 fL (80-95); Monocytes % 10.7 %; Neutrophils % 72.9 %; Platelet Count 173 10^3/uL (130-400); RBC 4.83 10^6/uL (4.36-5.78); RDW 12.3 % (11.8-14.1); RDW-SD 42.3 fL; WBC 7.45 10^3/uL (4.4-10.8)
[2024-09-16 06:19] LABS: ALT 28 U/L (16-63); AST 23 U/L (15-37); Albumin 3.3 g/dL (3.4-5.0); Alkaline Phosphatase 84 U/L (46-116); Anion Gap 7.5 mmol/L (3-11); BUN 16 mg/dL (7-18); Bilirubin, Total 0.94 mg/dL (0.2-1.0); CO2 31.5 mmol/L (21.0-32.0); CREATININE 0.9 mg/dL (0.70-1.30); Calcium 9.1 mg/dL (8.5-10.1); Chloride 102 mmol/L (98-107); Estimated GFR 97.17 (mL/min/1.73m2); Glucose 96 mg/dL (74-106); Potassium 3.3 mmol/L (3.5-5.1); Sodium 141 mmol/L (136-145); Total Protein 7.1 g/dL (6.4-8.2)
[2024-09-16] MEDS: Multivitamin TAB 1 TAB PO (08:45)
[2024-09-16] MEDS: Clopidogrel 75 MG TAB PO (08:45)
[2024-09-16] MEDS: Thiamine 100 MG TAB PO (08:45)
[2024-09-16] MEDS: Aspirin E.C. 81 MG TABEC PO (08:45)
[2024-09-16] MEDS: Nicotine 14 MG/24 HR PATCH TD (08:45)
[2024-09-16] MEDS: Potassium Chloride 20 MEQ TABCR 40 MEQ PO (08:45)
[2024-09-16] MEDS: Folic Acid 1 MG TAB PO (08:45)
--- NOTE | 2024-09-16 09:20 | INITIAL_ITS ---
Date of service: 09/16/24 Time of Service: 09:20 Care Management Initial Assmt Initial Assessment Reason for Hospitalization: carotid and subclavian stenosis- ataxia Functional Status/Living Situation Patient Presentation: Grupo presented to the ED yesterday afternoon with c/o generalized dizziness and weakness. He also stated that he is having trouble walking. CTA was significant for severe stenosis of the right ICA and origin of the left subclavian artery. Teleneuro consult was done and recommended admission for telemetry, physical therapy, and MRI. Request for transfer to tertiary facility, but no beds available. Venkat did state that he drinks 12 beers daily. Grupo has no local PCP and no insurance. When CM asked about this he stated I live with my mom. Grupo did agree to a [facility] referral, which was sent by CM. Grupo was pleasant when CM met with him, but didn't offer much information. Grupo stated that he is not able to read much. He does not drive, but does get around on a tractor. His mom still drives and does the shopping and cooking for them Town of Residence: [place] Resides with: Parent (Mom, Maty) Significant Other/Family: Local (mom, Maty. Grupo had 2 brothers who passed in 2017, and 2018) Natural Supports: mom only Employment Status: Unemployed Instrumental Activities of Daily Living (ADLs): Independent Medications Medication Management: No Issues/Barriers identified (not on any prescribed meds. ) Advance Directives Advance Directives: Do you have an Advance Directive: N 09/15/24 19:18 AD On File at [facility]: N 09/15/24 19:18 Date Asked 09/15/24 09/15/24 19:18 AD Date Reviewed COLST On File at [facility] COLST Date Scanned Code Status Resuscitation Status Full Code Insurance Coverage/Financial Issues Insurance: SELF PAY Care Team Visit Care Team Role Provider Type Victor M Washington DO MD [facility] STAFF PHYSICIAN Local No Primary Care Provider NON-[facility] STAFF PHYSICIAN InPatient Manny Ross Other Providers OTHER Gary Cutler MD Emergency Provider [facility] STAFF PHYSICIAN Lg Rodriguez MD Admit Provider [facility] STAFF PHYSICIAN Attending Provider Discharge Potential Discharge Needs: PT Evaluation and Other (transfer to tertiary facility for more in depth work up) Anticipated Barriers to Discharge: Bed availability Patient/Family Education Needs: Review discharge instructions, discuss Ask Me Three Transportation: EMS Plan: Anticipate that Venkat will be transferred to a tertiary facility once a bed becomes available. Venkat will need to establish with a PCP and secure some insurance. CM will continue to follow Social Determinants of Health Screening Social Determinants of Health last assessed: 09/16/24 Will the Patient Participate in the Screening?: Yes Do you worry about having a steady place to live?: no Problems where you live: no known problems In the past 12 months, have you had to go without electric, gas, oil or water in your home?: no Have you or anyone in your house had to go without enough food to eat?: no Has lack of transportation kept you from medical appointments or from doing things needed for daily living?: no Has anyone in your life made you feel unsafe or unsupported?: no How hard is it for you to pay for the very basics like food, housing, medical care, and heating? Would you say it is:: Not hard at all Do you want help finding or keeping work or a job?: I do not need or want help If for any reason you need help with day-to-day activities such as bathing, preparing meals, shopping, managing finances, etc., do you get the help you need?: I don?t need any help How often do you feel lonely or isolated from those around you?: Never Do you speak a language other than Lithuanian at home?: No Does the patient want assistance with any of the above?: No PFSH All Active Problems (Updated 09/16/24 @ 00:28 by Gary Cutler MD) Subclavian artery stenosis, left (Acute) Carotid stenosis, right (Acute) Falls (Acute) Alcohol use disorder (Acute) Hypertension (Chronic) Ataxia (Acute) Social History Smoking/Tobacco Use Status: Current every day Tobacco Type: cigarettes Smoking packs per day: 50 Smoking cigarettes per day: 1,000.0 Tobacco: How many years used: 50 Smoking risk assessment performed?: Yes Alcohol Intake: current Alcohol Intake frequency: 3 or more drinks per day Alcohol type: beer Drug use: Never Housing: house Readmission Within the Past 30 Days Yes or No: No
[2024-09-16 10:05] LABS: Calculated LDL 121 mg/dL (<100); Cholesterol 186 mg/dL (<200); HDL Cholesterol 47 mg/dL (>or=40); Triglyceride 92 mg/dL (<150)
--- NOTE | 2024-09-16 15:07 | PGE_ITS ---
Date of Service Date of service: 09/16/24 Time of Service: 15:07 Assessment and Plan Assessment and plan (1) Ataxia: Status: Acute Assessment and plan: - concerned about TIA/CVA in posterior circulation/cerebellum - CT negative for CVA, CTA results discussed below - now on atorvastatin, DAPT with ASA/plavix - patient will need MRI and 2d echo, these services will not be available here until 09/18 at the earliest (i did call [facility] to discuss transfer for imaging services/vascular eval but was turned down by transfer center case operator) - PT/OT eval once BP improved (2) Hypertension: Status: Chronic Assessment and plan: - patient started on lisinopril 5mg daily, will increase to 20mg for AM - suspect patient will need multiple agents but would like to move slowly considering recent CVA and likely long-term nature of severe htn (3) Carotid stenosis, right: Status: Acute Assessment and plan: - per CTA, 70% R sided carotid stenosis - continue ASA, plavix as ordered - continue atorvastatin - considering likelihood of CVA, would benefit from short term eval by vascular for potential intervention (4) Subclavian artery stenosis, left: Status: Acute Assessment and plan: - as noted above - continue DAPT (5) Falls: Status: Acute Assessment and plan: Frequent falls secondary to alcohol use and new onset ataxia. Thiamine folate and multivitamin. Physical therapy consult. (6) Alcohol use disorder: Status: Acute Assessment and plan: - remains CIWA = 0 for now - check thiame, folic acid levels. continue PO supplementation as ordered Subjective Subjective Interval history since last seen: Patient seen and examined today. He is aaox3, does not have any complaints at this time. Denies CP, SOB, CHAU, or focal weakness. BP remains significantly elevated, had dropped to 164/84 after first dose of lisinopril but now back to 194/92. HR = 71. Exam Const General: cooperative, comfortable and disheveled Orientation: alert, awake and oriented x3 Chest Chest: normal inspection of the chest Resp Effort & Inspection: normal respiratory effort Auscultation: clear to auscultation bilaterally, no rales, no rhonchi and no wheezes Cardio Rate: regular rate Rhythm: regular rhythm Heart Sounds: S1 normal and S2 normal GI Inspection: normal to inspection Palpation: nontender Percussion: normal to percussion Neuro Cranial Nerves: CN's II-XI intact bilaterally Cognition: normal cognition Speech: speech normal Extrem General: normal to inspection Objective Last Vital Signs Temp 36.7 C 09/16/24 12:10 Pulse 71 09/16/24 14:39 Resp 23 09/16/24 14:34 BP 194/92 H 09/16/24 14:39 Pulse Ox 94 09/16/24 14:01 Laboratory Results - last 24 hr 09/15/24 09/15/24 09/15/24 16:28 17:10 18:58 WBC 8.31 RBC 5.25 Hgb 16.3 Hct 48.2 MCV 92 MCH 31.0 MCHC 33.8 RDW 12.5 Plt Count 236 MPV 10.9 Immature Gran % 0.4 Neutrophils % 73.0 Lymphocytes % 16.0 Monocytes % 8.9 Eosinophils % 1.1 Basophils % 0.6 Nucleated RBC % 0.0 Absolute Neutrophils 6.07 Absolute Lymphocytes 1.33 Absolute Monocytes 0.74 Absolute Eosinophils 0.09 Absolute Basophils 0.05 PT INR APTT Sodium 144 Potassium 3.6 Chloride 102 Carbon Dioxide 30.0 Anion Gap 12.0 H BUN 20 H Creatinine 1.0 Est GFR (CKD-EPI 2020) 85.63 Glucose 112 H Calcium 9.4 Magnesium 2.1 Total Bilirubin 0.63 AST 22 ALT 32 Alkaline Phosphatase 98 Ammonia < 10 L Troponin I 19 Cancelled Total Protein 8.0 Albumin 3.7 Triglycerides Total Cholesterol LDL Cholesterol, Calc HDL Cholesterol TSH 0.42 Ethyl Alcohol < 3.0 09/15/24 09/16/24 09/16/24 20:10 00:04 05:23 WBC 7.45 RBC 4.83 Hgb 15.0 Hct 44.8 MCV 93 MCH 31.1 MCHC 33.5 RDW 12.3 Plt Count 173 MPV 11.0 Immature Gran % 0.5 Neutrophils % 72.9 Lymphocytes % 13.2 Monocytes % 10.7 Eosinophils % 1.9 Basophils % 0.8 Nucleated RBC % 0.0 Absolute Neutrophils 5.43 Absolute Lymphocytes 0.98 L Absolute Monocytes 0.80 Absolute Eosinophils 0.14 Absolute Basophils 0.06 PT 10.4 INR 1.0 APTT 23.2 Sodium 141 Potassium 3.3 L Chloride 102 Carbon Dioxide 31.5 Anion Gap 7.5 BUN 16 Creatinine 0.9 Est GFR (CKD-EPI 2020) 97.17 Glucose 96 Calcium 9.1 Magnesium Total Bilirubin 0.94 AST 23 ALT 28 Alkaline Phosphatase 84 Ammonia Troponin I 18 Total Protein 7.1 Albumin 3.3 L Triglycerides 92 Total Cholesterol 186 LDL Cholesterol, Calc 121 H HDL Cholesterol 47 H TSH Ethyl Alcohol PAWSS Have you Been Recently Intoxicated or Drunk Within the Last 30 days?: No Have you Ever Experienced Previous Episodes of Alcohol Withdrawal?: No Have you ever Experienced Withdrawal Seizures?: No Have you ever Experienced Delirium Tremens(DT)s?: No Have you ever undergone Alcohol Rehabilitation Treatment (i.e, inpt ot outpatient treatment programs)?: No Have you ever Experienced Blackouts?: No Have you ever Combined Alcohol with other Downers within the last 90 days?: No Have you ever Combined Alcohol with any other Substance of Abuse during the last 90 days?: No Positive Blood Alcohol level on Presentation? [PCS.BAL]: Yes Evidence of Increased Autonomic Activity (i.e. HR>120, tremor, sweating, agitation, nausea)?: No Result: 1 Time Spent with Patient Time Spent with Patient: <25 minutes Time was spent: ordering medications,tests, procedures, referring, communicating with other health respiratory care specialist, indepentently interpreting results and counseling the patient
--- NOTE | 2024-09-16 15:44 | PT.INIE ---
PT Notes Visit Reasons: Severe Right ICA stenosis with ataxia Inpatient Physical Therapy Evaluation Date: September 16, 2024 Referring Doctor: Dr. Lg Rodriguez PT Orders: PT CONSULT: Safety consult for DC eval for assistive device Precautions: Activity as tolerated, fall precautions Patient Profile/Admitting Diagnosis: 63-year-old male that does not seek medical care routinely began to have worsening problems with ataxia starting 09/13/2024. When he tried to walk he would fall frequently. He described dizziness and a feeling of weakness all over such that he could not stand up. He feels fine when he is sitting. He smokes about 1 to 1-1/2 packs/day but stopped on Wednesday. He drinks 10-11 beers daily starting in the morning, but has not had a drink since Wednesday. Workup in the ED included a CTA of his head and neck. There was no acute stroke but severe carotid stenosis on the right internal carotid artery (75%), and severe stenosis of the left subclavian artery (70%). The concern was he had symptomatic severe carotid stenosis. neurology was consulted. They could not take him in transfer, they recommended Plavix and aspirin, and an MRI of the brain. We have looked elsewhere and tentatively may be able to transfer him to [facility] in [place] when a bed becomes PMHX: PFSH All Active Problems (Updated 09/16/24 @ 00:28 by Gary Cutler MD) Subclavian artery stenosis, left (Acute) Carotid stenosis, right (Acute) Falls (Acute) Alcohol use disorder (Acute) Hypertension (Chronic) Ataxia (Acute) Social History/Home Situation: Lives with mom. Does not drive. Has 2 decks to enter the house 1 with 3 steps and 1 with 4 steps. Current Functional Limitations: He is generally quite active working on cutting wood and odd jobs around the house. 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 He denies any problems with chest pain or shortness of breath. Despite being a lifelong smoker he has not had any chronic respiratory problems. He has never had any cardiac problems. The new onset ataxia and dizziness is his only problem. Equipment Owned/DME: None Subjective: Feeling as though he has better strength in his legs. Agreeable to evaluation. Objective: General Observation: Telemetry, IV port left upper extremity Mental Status: Alert and oriented x 3 Pain: None Vital Signs: During ambulation and stair negotiation blood pressure 192/94 and heart rate 112 all monitored via telemetry ROM: Right Upper Extremity: Within normal limits Left Upper Extremity: Within normal limits Right Lower Extremity: Within normal limits Left Lower Extremity: Within normal limits Strength: Right Upper Extremity: 4/5 glenohumeral joint flexion, abduction, elbow flexion and extension. Good research and development scientist Left Upper Extremity: 4/5 glenohumeral joint flexion, abduction, elbow flexion and extension. Good research and development scientist Right Lower Extremity: Hip flexion 4+/5, knee flexion 4 -/5, knee extension 4+/5, seated hip AB and adduction 4/5 Left Lower Extremity: Hip flexion 4+5, knee flexion 4 -/5, knee extension 4+/5, seated hip AB and adduction 4/5. Sensation: Intact sensation light touch bilateral upper and lower extremities Bed Mobility/Transfers: At start of evaluation patient sitting bedside with nursing completing telemetry application and hygiene. Sit?stand: Standby assist Stand?sit: Standby assist Gait: Patient ambulates level terrain with contact-guard x 1 from ICU to PT treatment room. Performs stair negotiation of two 6 inch stairs and 3 4 and stairs x 4. Requires verbal cues for hand placement on rail and pace. No evidence of significant ataxia. No formal assistive device used for ambulation other than contact-guard. Following stair negotiation patient then ambulated 300 feet with contact-guard and no gait deviation. Balance: Static Sitting: Normal Dynamic Sitting: Normal Static Standing: Good Dynamic Standing: Fair Special Tests: Mobility Limitations Standardized Measure [facility] 6 clicks Basic Mobility Inpatient Short Form: Raw Score: 21 standardized Score: [] CMS Score: 29% Informed Consent/Education: Patient instructed in purpose of PT consult and plan of care. Assessment: Patient is a 63year old male referred to physical therapy services with the diagnosis of severe right ICA stenosis with ataxia. Patient presents with clinical signs and symptoms consistent with above diagnosis. Assessment: Pt is 89 yo female with impaired short term memory / confusion. Patient presents with clinical signs and symptoms consistent with current/admitting diagnoses that have resulted to mobility limitations, gait instability, generalized weakness, and impairment of motor control as demonstrated by the following impairment level findings: 1. Decreased strength to bilateral LE major muscle groups 2. Impaired dynamic balance 3. Poor insight into unsafe situations/ impaired safety awareness during stair negotiation. Impairments are contributing to the following functional limitations: 1. Inability to safely negotiate stairs to enter and exit home Impairments are contributing to the following functional limitations: AMPAC score. Patient is assessed as a X Low 66831 [] Moderate 71105 [] High 29320 complexity based on the following: History: See comorbidities and social history Examination: See above for functional level Presentation: Stable Decision Making: Low Goals: Goals X1 week 1. Gait 300 feet independent 2. Stairs: independent Plan of Care/Treatment Plan: 1-2x/day, 7 days/week x 1 week. Plan of care has been reviewed with the WASTE TRANSPORTATION TECHNICIAN providing the service under Physical Therapy direction. Initiate Physical Therapy intervention for strengthening, bed mobility, transfers, gait, stairs, balance training, use of assistive device. DISCHARGE RECOMMENDATIONS: Patient is awaiting transfer to tertiary facility in [place] TREATMENT CODE/TIME: 52921 30 minutes?210?2:40 PM Thank you for this referral. Lg Hillman PT, DPT Disclaimer: This note was created using Agenda voice recognition software. It was reviewed for major content. However, there may be multiple small discrepancies and errors due to the voice recognition aspects of the software.
[2024-09-16] MEDS: Atorvastatin 20 MG TAB PO (19:56)
[2024-09-17] VITALS (23 sets, daily range): BP systolic 136–202; BP diastolic 74–167; PULSE 57–88; RESP 13–19; TEMP 36.9–37.3; O2SAT 96–98
[2024-09-17 05:28] LABS: Abs Immature Grans 0.04 10^3/uL (0.0-0.06); Absolute Basophil Count 0.07 10^3/uL (0.0-0.2); Absolute Eosinophil Count 0.28 10^3/uL (0.0-0.7); Absolute Lymphocyte Count 1.43 10^3/uL (1.2-3.4); Absolute Monocyte Count 0.76 10^3/uL (0.1-0.8); Absolute Neutrophil Count 4.95 10^3/uL (1.2-6.7); Basophils % 0.9 %; Eosinophils % 3.7 %; HCT 44.8 % (40.0-50.0); HGB 15.1 g/dL (13.5-17.5); Immature Grans % 0.5 %; MCH 31.5 pg (27.0-33.0); MCHC 33.7 % (32.0-36.0); MCV 93 fL (80-95); MPV 10.9 fL (8.0-11.0); Monocytes % 10.1 %; Neutrophils % 65.8 %; Platelet Count 173 10^3/uL (130-400); RDW 12.5 % (11.8-14.1); RDW-SD 42.9 fL; WBC 7.53 10^3/uL (4.4-10.8)
[2024-09-17 06:14] LABS: Anion Gap 6.4 mmol/L (3-11); BUN 17 mg/dL (7-18); CO2 28.6 mmol/L (21.0-32.0); CREATININE 0.9 mg/dL (0.70-1.30); Calcium 8.9 mg/dL (8.5-10.1); Chloride 105 mmol/L (98-107); Estimated GFR 97.17 (mL/min/1.73m2); Glucose 89 mg/dL (74-106); Magnesium 2.1 mg/dL (1.8-2.4); Potassium 3.9 mmol/L (3.5-5.1); Sodium 140 mmol/L (136-145)
[2024-09-17 06:16] LABS: Folate > 20.0 ng/mL (8.6-20.0)
--- NOTE | 2024-09-17 08:23 | W.NUTRFU ---
Date of service: 09/17/24 Time of Service: 08:23 Nutrition Note NOTE: 63yo male pt admitted with ataxia, HTN, hx of of falls, etoh disorder and stenosis of L subclavian artery. Pt weight stable this admission. no extensive weight history. B1 level pending - ordered for thiamine and folate for 7 days. folate lab >20. would recommend vitamin D level, d/c folate. 50% or > intake at meals this admission- ordered for heart healthy diet with normal consistencies. No significant nutrition intervention planned at this time. Will continue to get patient preference at meal orders and offer ONS as desired/indicated. Will monitor weight, nutrition-related labs, po intake Time Spent in Nutritional Counseling and Treatment: 5 min
[2024-09-17] MEDS: Nicotine 14 MG/24 HR PATCH TD (08:52)
[2024-09-17] MEDS: Lisinopril 5 MG TAB 20 MG PO (08:52)
[2024-09-17] MEDS: Aspirin E.C. 81 MG TABEC PO (08:53)
[2024-09-17] MEDS: Clopidogrel 75 MG TAB PO (08:53)
[2024-09-17] MEDS: Folic Acid 1 MG TAB PO (08:53)
[2024-09-17] MEDS: Multivitamin TAB 1 TAB PO (08:53)
[2024-09-17] MEDS: Thiamine 100 MG TAB PO (08:53)
--- NOTE | 2024-09-17 10:50 | PTTR_ITS ---
PT Notes Visit Reasons: Severe Right ICA stenosis with ataxia Inpatient Physical Therapy Treatment Note [facility] Date: September 17, 2024 PRECAUTIONS: Ataxic gait SUBJECTIVE: Grupo states that he slept pretty well last night. Thinks plans of change that he is not being sent to a tertiary facility in [place]. Nursing indicated they are ordering diagnostics to be performed through [facility] facility. OBJECTIVE: ? PAIN: 0/10 VITALS: Monitored via telemetry with nursing and ICU. O2 saturation after 300 foot walk 97% room air ? Therapeutic Activities (85665t7): Direct one-on-one instruction in dynamic activities to improve functional performance. ? BED MOBILITY/TRANSFERS? Supine-sit: Independent ? Sit-stand: Contact-guard? Stand-sit: Contact-guard ? Bed-Chair: Min assist? Provided skilled cues and instruction on performance and technique throughout. Gait Training (07131r3): Direct one-on-one instruction and skilled instruction in: X movement sequencing X turning and movement with proper form X Provided instruction in gait pattern GAIT? Assistive Device: None ? Weight bearing: Full Assist: Contact-guard ? Distance:? 300 feet x 2 with 5-minute sit break in between. O2 saturation 97% on room air ? Deviation: Mild ataxia particularly when turning to the right with right lower extremity circumducting. Verbal cues offered for pacing as patient tends to ambulate briskly. ? STAIRS: Performs 3 forward steps and two 6 inch steps x 3 with contact- guard and verbal cues for railing use as well as pacing as he tends to chase. ? ASSESSMENT: Mild ataxia particular when turning to his right. PLAN: Continue with global strengthening and general conditioning for improved safety, mobility and activity tolerance until pt is ready for DC. TREATMENT CODE/TIME: Morning session:10:25-10:50 74308 X1, 81644 X1 DISCHARGE RECOMMENDATION: Discharge home with no services
--- NOTE | 2024-09-17 12:50 | PGE_ITS ---
Date of Service Date of service: 09/17/24 Time of Service: 12:52 Assessment and Plan Assessment and plan (1) Ataxia: Status: Acute Assessment and plan: - concerned about TIA/CVA in posterior circulation/cerebellum - CT negative for CVA, CTA results discussed below. Subclavian stenosis can affect vertebrobasilar circulation. - now on atorvastatin, DAPT with ASA/plavix - patient will need MRI, pending tomorrow. Echo as well but we could do this as outpatient. - PT/OT eval once BP improved (2) Hypertension: Status: Chronic Assessment and plan: -Likely chronic, patient has not been engaged in medical care -patient started on lisinopril 5mg, increased to 20mg for AM -consider adding thiazide or CCB as next step. (3) Carotid stenosis, right: Status: Acute Assessment and plan: - per CTA, 70% R sided carotid stenosis - continue ASA, plavix as ordered - continue atorvastatin -Follow up with vascular for potential intervention (4) Subclavian artery stenosis, left: Status: Acute Assessment and plan: - as noted above, this would be more urgent lesion as it is the one that could be related to his symptoms. - continue DAPT (5) Falls: Status: Acute Assessment and plan: Frequent falls secondary to alcohol use and new onset ataxia. Thiamine folate and multivitamin. Add B12. Physical therapy consult. (6) Alcohol use disorder: Status: Acute Assessment and plan: - remains CIWA = 0 for now - Discussed options for treatment. He declines gymnastics coach, rehab, AA. He does confirm drinking problem, though ambivelent about quitting, would like to cut back but admits he is unlikely to stop with 1-2 beers. - He is open to medical therapy, could try naltrexone at discharge. - Needs a PCP for follow up, connection with therapist, director of social media marketing. Subjective Subjective Patient reports: no new complaints, feels better, tolerating a regular diet and voiding w/o difficulty; denies diarrhea, nausea, vomiting, shortness of breath or fever Interval history since last seen: Feeling better. He was up walking with physical therapy. Balance is improving. No headache or other new symptoms. Exam Narrative Exam Narrative: Alert and oriented, NAD, long dreaded galvan. CV RRR no M/G/R. Lung CTAB, normal effort. Abdomen is overall nontender. The lower extremities show no evidence of edema and appear to be well-perfused bilaterally. Neurologically CN 2-12 intact, normal FNF/HTS. States up and takes a step, slightly unsteady with feet together. Slight tremor with holding out hands. No focal numbness/weakness, normal speech. Objective Last Vital Signs Temp 37.3 C 09/17/24 11:33 Pulse 63 09/17/24 06:01 Resp 16 09/17/24 06:01 BP 174/87 H 09/17/24 06:01 Pulse Ox 96 09/17/24 00:01 Laboratory Results - last 24 hr 09/17/24 05:20 WBC 7.53 RBC 4.80 Hgb 15.1 Hct 44.8 MCV 93 MCH 31.5 MCHC 33.7 RDW 12.5 Plt Count 173 MPV 10.9 Immature Gran % 0.5 Neutrophils % 65.8 Lymphocytes % 19.0 Monocytes % 10.1 Eosinophils % 3.7 Basophils % 0.9 Nucleated RBC % 0.0 Absolute Neutrophils 4.95 Absolute Lymphocytes 1.43 Absolute Monocytes 0.76 Absolute Eosinophils 0.28 Absolute Basophils 0.07 Sodium 140 Potassium 3.9 Chloride 105 Carbon Dioxide 28.6 Anion Gap 6.4 BUN 17 Creatinine 0.9 Est GFR (CKD-EPI 2020) 97.17 Glucose 89 Calcium 8.9 Magnesium 2.1 Folate > 20.0 H PAWSS Have you Been Recently Intoxicated or Drunk Within the Last 30 days?: No Have you Ever Experienced Previous Episodes of Alcohol Withdrawal?: No Have you ever Experienced Withdrawal Seizures?: No Have you ever Experienced Delirium Tremens(DT)s?: No Have you ever undergone Alcohol Rehabilitation Treatment (i.e, inpt ot outpatient treatment programs)?: No Have you ever Experienced Blackouts?: No Have you ever Combined Alcohol with other Downers within the last 90 days?: No Have you ever Combined Alcohol with any other Substance of Abuse during the last 90 days?: No Positive Blood Alcohol level on Presentation? [PCS.BAL]: Yes Evidence of Increased Autonomic Activity (i.e. HR>120, tremor, sweating, agitation, nausea)?: No Result: 1 Time Spent with Patient Time Spent with Patient: >50 minutes Time was spent: preparing to see the patient(eg.review tests), obtaining and/or reviewing separately otained hiistory, ordering medications,tests, procedures, referring, communicating with other health career resource technician, indepentently interpreting results, counseling the patient and care coordination
[2024-09-17 17:58] LABS: Vitamin B12 309 pg/mL (193-986)
[2024-09-17] MEDS: Atorvastatin 20 MG TAB PO (19:31)
[2024-09-18 03:45] VITALS: BP 152/90; PULSE 68; RESP 16; TEMP 36.4; O2SAT 95
[2024-09-18 05:44] VITALS: BP 152/73; PULSE 69; RESP 16; TEMP 37; O2SAT 97
[2024-09-18] MEDS: Nicotine 14 MG/24 HR PATCH TD (09:32)
[2024-09-18] MEDS: Folic Acid 1 MG TAB PO (09:32)
[2024-09-18] MEDS: Lisinopril 5 MG TAB 20 MG PO (09:33)
[2024-09-18] MEDS: Clopidogrel 75 MG TAB PO (09:33)
[2024-09-18] MEDS: Aspirin E.C. 81 MG TABEC PO (09:34)
[2024-09-18] MEDS: Multivitamin TAB 1 TAB PO (09:34)
[2024-09-18] MEDS: Thiamine 100 MG TAB PO (09:36)
--- NOTE | 2024-09-18 12:15 | DI.MRI_ITS ---
Exam(s) MR BRAIN WO EXAM: MR BRAIN WO CLINICAL HISTORY: acute ataxia, CVA/TIA? TECHNIQUE: Multiplanar multisequence MRI of the brain was performed. COMPARISON: CT CT BRAIN NECK CTA from 09/15/2024 No prior brain MRIs available for comparison FINDINGS: CEREBRAL PARENCHYMA: Again noted is evidence of prior right cerebellar infarct. However on the present study there is now significant restricted diffusion in left cerebellar hemisphere consistent with acute nonhemorrhagic infarct. There is no acute 1st trick diffusion evident in the right cerebellar hemisphere nor within the leah, midbrain, and thalami nor within the periventricular white matter. There are few foci of signal abnormality in the bilateral periventricular white matter consistent wit h chronic small vessel disease but not exhibiting restricted diffusion. SWI: There is a single tiny focus of susceptibility in the left paraventricular white matter consiste nt with prior microhemorrhage. PITUITARY GLAND: No mass nor parasellar abnormality. No obvious abnormality in the cavernous sinuses. FLOW VOIDS: The expected flow void are noted. No evidence of obvious aneurysm nor obvious vascular ma lformation. PARANASAL SINUSES: There is some mild mucosal thickening of the right maxillary sinus. No associated fluid level. Left maxillary sinus is clear as are the sphenoid sinuses. Frontal sinuses clear as a re the ethmoidal air cells. There are bilateral mastoid effusions. ORBITS: No obvious findings. IMPRESSION: Acute large nonhemorrhagic infarct in the left cerebellar hemisphere. This patient has had prior inf arct in the opposite-right cerebellar hemisphere. There is no abnormal acute signal in the right cer ebellar hemisphere. Other findings as above DATA REPOSITORY:
--- NOTE | 2024-09-18 12:49 | PT.INTREAT ---
PT Notes Visit Reasons: Severe Right ICA stenosis with ataxia Inpatient Physical Therapy Treatment Note [facility] Date: 09/18/2024 PRECAUTIONS: Ataxic gait, HIGH Fall RISK, Standard precautions SUBJECTIVE: Grupo reports he is feeling good and has been up walking in his room alone. OBJECTIVE: Pt presented reclined in bed with his boots on. Bed alarm in place and functioning.? MD reports he is having an MRI today but it is okay to treat prior to MRI. ? PAIN: 0/10 VITALS: Monitored via telemetry with nursing and ICU. ? Therapeutic Activities (23385): Direct one-on-one instruction in dynamic activities to improve functional performance. ? BED MOBILITY/TRANSFERS? Supine-sit: Independent ? Sit-stand: Contact-guard? Stand-sit: min A ? wheelchair to bed : Mod A d/t LOB to right Provided skilled cues and instruction on performance and technique throughout. Gait Training (44338h6): Direct one-on-one instruction and skilled instruction in: X movement sequencing X turning and movement with proper form X Provided instruction in gait pattern GAIT? Pt initially ambulated with CGA with steady non ataxic gait. after 42 feet and performing stairs pt began to demonstrate ataxia increase lean to right difficulty following commands difficulty maintaining upright posture requiring max Assist. Deviation: Severe ataxia particularly when turning to the right with right lower extremity circumducting. Verbal cues offered for pacing as patient tends to ambulate briskly. ? STAIRS: Performs 3 4 steps and two 6 inch steps x1 with contact-guard initially then min A and verbal cues for railing use as well as pacing as he tends to chase. ? ASSESSMENT: Significant ataxia noted, inability to sustain upright position in stand or sit with increase lean to the right. pt assisted to bed with mod Assist and MD notified. Pt with impaired spatial awareness and impaired righting and equilibrium reactions. Pt listing to the right in sit and stand. PLAN: 1-2x/day, 7 days/week x 1 week. Plan of care has been reviewed with the MARKET RELATIONSHIP MANAGER providing the service under Physical Therapy direction. Initiate Physical Therapy intervention for strengthening, bed mobility, transfers, gait, stairs, balance training, use of assistive device. TREATMENT CODE/TIME: Morning session:[id number]/ 11730 (pm session ) not available elevated BP after MRI Nurse recommended hold treatment DISCHARGE RECOMMENDATION: Acute rehab vs SNF
[2024-09-18 14:27] VITALS: BP 157/97; PULSE 84; RESP 18; TEMP 36.6; O2SAT 98
--- NOTE | 2024-09-18 15:55 | W.PM.PROGNOT ---
Date of Service Date of service: 09/18/24 Time of Service: 15:56 Assessment and Plan Assessment and plan (1) Cerebellar stroke: Status: Acute Assessment and plan: - MRI confirms old and acute CVAs in cerebellum as cause for ataxia - CTA results discussed below. Subclavian stenosis can affect vertebrobasilar circulation. - now on atorvastatin increase to high intensity. Continue DAPT with ASA/plavix - Will reconsult teleneuro about need for acute intervention on large vessel stenosis in this setting. I called [facility] vascular but declined consideration for transfer due to beds. - Continue PT as tolerated. I don't think he is safe for home given today's ataxia. (2) Hypertension: Status: Chronic Assessment and plan: -Likely chronic, patient has not been engaged in medical care -patient started on lisinopril 5mg, increased to 20mg 3/2 -now that >48 hours out, goal BP is under 130/80, add amlodipine (3) Carotid stenosis, right: Status: Acute Assessment and plan: - per CTA, 75% R sided carotid stenosis - continue ASA, plavix as ordered - continue atorvastatin -Follow up with vascular for potential intervention after f/u neurology consult. [facility] at capacity but could consider other hospitals if urgent surgery recommended. (4) Subclavian artery stenosis, left: Status: Acute Assessment and plan: - as noted above, ~75% stenosis, and this may be more urgent lesion as it could be related to his symptoms. - continue DAPT (5) Falls: Status: Acute Assessment and plan: Frequent falls secondary to alcohol use and cerebellar CVA. Thiamine folate and multivitamin. Add B12. Physical therapy consult. (6) Alcohol use disorder: Status: Acute Assessment and plan: - Has not had withdrawal - Have discussed options for treatment. He declined pyridine recovery operator, rehab, AA. He does confirm drinking problem, though ambivelent about quitting, would like to cut back but admits he is unlikely to stop with 1-2 beers. - He is open to medical therapy, could try naltrexone at discharge. - Needs a PCP for follow up, connection with therapist, social service worker. Subjective Subjective Patient reports: tolerating a regular diet and voiding w/o difficulty; denies diarrhea, nausea, vomiting, shortness of breath or fever Interval history since last seen: 24 hr: more ataxic with PT today, falling to left. Patient states he feels okay. no focal weakness. Admits balance is off but feels he did okay walking. no headaches. Exam Narrative Exam Narrative: Alert and oriented, NAD, long dreaded galvan. CV RRR no M/G/R. Lung CTAB, normal effort. Abdomen is overall nontender. The lower extremities show no evidence of edema and appear to be well-perfused bilaterally. Neurologically CN 2-12 intact, normal FNF/HTS. No tremor today. No focal numbness/weakness, normal speech. Objective Last Vital Signs Temp 36.6 C 09/18/24 14:27 Pulse 84 09/18/24 14:27 Resp 18 09/18/24 14:27 BP 157/97 H 09/18/24 14:27 Pulse Ox 98 09/18/24 14:27 Laboratory Results - last 24 hr 09/17/24 05:20 Vitamin B12 309 PAWSS Have you Been Recently Intoxicated or Drunk Within the Last 30 days?: No Have you Ever Experienced Previous Episodes of Alcohol Withdrawal?: No Have you ever Experienced Withdrawal Seizures?: No Have you ever Experienced Delirium Tremens(DT)s?: No Have you ever undergone Alcohol Rehabilitation Treatment (i.e, inpt ot outpatient treatment programs)?: No Have you ever Experienced Blackouts?: No Have you ever Combined Alcohol with other Downers within the last 90 days?: No Have you ever Combined Alcohol with any other Substance of Abuse during the last 90 days?: No Positive Blood Alcohol level on Presentation? [PCS.BAL]: Yes Evidence of Increased Autonomic Activity (i.e. HR>120, tremor, sweating, agitation, nausea)?: No Result: 1 Time Spent with Patient Time Spent with Patient: 35-49 minutes Time was spent: preparing to see the patient(eg.review tests), obtaining and/or reviewing separately otained hiistory, ordering medications,tests, procedures, referring, communicating with other health pet care associate, indepentently interpreting results, counseling the patient and care coordination
--- NOTE | 2024-09-18 16:09 | PDOC.CMPRO ---
Date of service: 09/18/24 Time of Service: 12:30 Care Management Progress Note Progress Note Text Progress Note Text: Grupo was sitting up in the bed when CM met with him today. He stated that he is feeling a lot better today. PT stated that Grupo was very unsteady today. When CM asked about this, he said that he did fine. He stated that he is sometimes unsteady at home, but just holds on to eden and furniture. HH PT is recommended, but he currently has no insurance, so not an option. When CM met with Grupo, he had just returned from MRI. CM reached out to [employer] this morning. They were going to reach out to Grupo to help with his insurance application. When CM met with Grupo, they had not yet reached out. CM left another message at [facility]. Discharge Potential Discharge Needs: Other (Grupo needs to establish with a PCP. T-doc for his night of admission was Karine Chowdhury NP. An appointment should be made for him prior to discharge, as well as transportation, if possible.) Anticipated Barriers to Discharge: None Identified Patient/Family Education Needs: Review discharge instructions, discuss Ask Me Three Transportation: Private vehicle (stated that his mom will pick him up) Plan: Anticipate that Grupo will be discharged home with no new services. He has stated to CM that he is not interested in HH services. Grupo will f/u with his new PCP and continue per his plan of care. [facility] should meet with him prior to discharge. CM will continue to follow and adjust the plan as needed. Social Determinants of Health Screening Social Determinants of Health last assessed: 09/18/24 Will the Patient Participate in the Screening?: Yes Do you worry about having a steady place to live?: no Problems where you live: no known problems In the past 12 months, have you had to go without electric, gas, oil or water in your home?: no Have you or anyone in your house had to go without enough food to eat?: no Has lack of transportation kept you from medical appointments or from doing things needed for daily living?: no Has anyone in your life made you feel unsafe or unsupported?: no How hard is it for you to pay for the very basics like food, housing, medical care, and heating? Would you say it is:: Not hard at all Do you want help finding or keeping work or a job?: I do not need or want help If for any reason you need help with day-to-day activities such as bathing, preparing meals, shopping, managing finances, etc., do you get the help you need?: I don?t need any help How often do you feel lonely or isolated from those around you?: Never Do you speak a language other than Iranian at home?: No Does the patient want assistance with any of the above?: No
[2024-09-18] MEDS: Atorvastatin 40 MG TAB PO ×2 (16:44→20:07)
[2024-09-18 19:21] VITALS: BP 165/92; PULSE 71; RESP 18; TEMP 36.3; O2SAT 98
[2024-09-18] MEDS: Normal Saline Flush 10 ML SYR IVP (20:07)
[2024-09-19 07:42] VITALS: BP 167/88; PULSE 62; RESP 16; TEMP 36.2; O2SAT 96
[2024-09-19] MEDS: Lisinopril 5 MG TAB 20 MG PO (09:26)
[2024-09-19] MEDS: Clopidogrel 75 MG TAB PO (09:26)
[2024-09-19] MEDS: Aspirin E.C. 81 MG TABEC PO (09:27)
[2024-09-19] MEDS: Multivitamin TAB 1 TAB PO (09:27)
[2024-09-19] MEDS: Nicotine 14 MG/24 HR PATCH TD (09:27)
[2024-09-19] MEDS: Folic Acid 1 MG TAB PO (09:27)
[2024-09-19] MEDS: Thiamine 100 MG TAB PO (09:27)
[2024-09-19] MEDS: amLODIPine 5 MG TAB PO (09:27)
[2024-09-19] MEDS: Normal Saline Flush 10 ML SYR IVP (09:34)
--- NOTE | 2024-09-19 12:48 | PTTR_ITS ---
PT Notes Visit Reasons: Severe Right ICA stenosis with ataxia Inpatient Physical Therapy Treatment Note [facility] Date: 09/19/2024 PRECAUTIONS: High fall risk due to unsafe gait pattern and poor spatial orientation. SUBJECTIVE: Cooperative with today's treatment. [place] much better but still has dizziness. Added that dizziness after eating. Hopeful about going home today. Agreeable to using FWW for today's activity. Denied headache, chest pain, and lightheadedness throughout session. Nurse Shy clarified need for alarms for safety in bed and for the chair. OBJECTIVE: No lines. ? PAIN: None reported throughout VITALS: Closely monitored by nursing staff? BED MOBILITY/TRANSFERS: Minimal verbal cueing provided for AD management for safety ? Supine-sit: independent ? Sit-stand: independent ? Stand-sit: independent ? Wheelchair to bed : stand by assist with FWW GAIT? Facilitated safe and correct performance of level surface ambulation covering a distance of 300 feet using FWW with moderate verbal cueing given to ensure optimal distance from walker, weight distribution onto AD, increased step height and length to maximize coordination and stability.?Wheelchair follow provided by SANDIP Burnett. Gait much imprved compared to yesterday. Minimal sway to R when he fatigued x 2 but no LOB. ? NEURO RE-EDUCATION:? In the afternoon, worked on stimulating righting reactions, stability, and dynamic balance awareness while walking along a 20 feet hallway while holding onto rail forward, backward, sideways progressing to minimally resisted braiding walks 20 feet to the R and 20 feet to the L x 3 sets. Patient was then advanced to unassisted walking forward and sidestepping without holding onto rail with stand by assist of PT with no LOB for 1 set only. ASSESSMENT: More upright today and demonstrated better coordination with standing/walking activities. ?Gait more symmetrical and stride quality improved with increased step height and length. Patient was fitted and provided with FWW to take home. He was strongly advised to use said device to reduce fall risk. Significant improvement seen in today's performance with no lateral sway to R nor L. PLAN: 1-2x/day, 7 days/week x 1 week. Plan of care has been reviewed with the CERTIFIED SURGICAL FIRST ASSISTANT providing the service under Physical Therapy direction. Initiate Physical Therapy intervention for strengthening, bed mobility, transfers, gait, stairs, balance training, use of assistive device. DISCHARGE RECOMMENDATION: Acute rehab vs SNF TREATMENT CODE/TIME: Session 1--37201 x 38 minutes for 3 units (8:36-9:14) Session 2--72072 x 38 minutes for (12:48-13:26).
--- NOTE | 2024-09-19 15:12 | PHA.REVIEW2 ---
Pharmacy Admission Review Admission Clinical Review Admission Pharmacy Review: Cerebellar stroke (Acute) Subclavian artery stenosis, left (Acute) Carotid stenosis, right (Acute) Falls (Acute) Alcohol use disorder (Acute) Ataxia (Acute) tomato Allergy (Intermediate, Verified 09/18/24 14:42) Skin Rash Resuscitation Status Full Code Height 5 ft 6 in Weight 61 kg Pharmacy Admission Review Renal Dosing Renal Dosing: BUN 17 mg/dL (7-18) 09/17/24 05:20 Creatinine 0.9 mg/dL (0.70-1.30) 09/17/24 05:20 Medications needing adjustments: Reviewed (CrCl 66 mL/min) List of meds needing interventions: Current medications are okay Anticoagulation Anticoagulation: Hgb 15.1 g/dL (13.5-17.5) 09/17/24 05:20 Hct 44.8 % (40.0-50.0) 09/17/24 05:20 Plt Count 173 10^3/uL (130-400) 09/17/24 05:20 INR 1.0 (0.9-1.1) 09/16/24 00:04 Creatinine 0.9 mg/dL (0.70-1.30) 09/17/24 05:20 DVT Prophylaxis: Reviewed (SCDs) Relevant Labs Relevant Labs: Sodium 140 mmol/L (136-145) 09/17/24 05:20 Potassium 3.9 mmol/L (3.5-5.1) 09/17/24 05:20 Chloride 105 mmol/L (98-107) 09/17/24 05:20 Magnesium 2.1 mg/dL (1.8-2.4) 09/17/24 05:20 Electrolytes, C-Reactive P, ESR: Reviewed (No new labs) Cardiac Review Cardiac Review: Troponin I 18 ng/L (<or=76) 09/15/24 20:10 BP, HR, EF%: Reviewed (BP 167/88, HR WNL) List meds needing interventions: has order for amlodipine 5mg daily and lisinopril 20mg daily QTc Review QTc: Reviewed (440 from 09/15/24) IV to PO Switch IV Medications: Reviewed Home Meds Home Med List reviewed: Reviewed Relevent Home Meds Not ordered & why?: No known home meds Current Meds Current Medication Order Review: Intervened Comments: Changed lisinopril order from 5mg tablets to 20mg tablets (dose 20mg daily) Has lorazepam for CIWA protocol - no doses given
--- NOTE | 2024-09-19 15:22 | DSE_ITS ---
Date of service: 09/19/24 Time of Service: 15:22 DS: Diagnosis Discharge Diagnosis (1) Cerebellar stroke: Status: Acute (2) Hypertension: Status: Chronic (3) Carotid stenosis, right: Status: Acute (4) Subclavian artery stenosis, left: Status: Acute (5) Falls: Status: Acute (6) Alcohol use disorder: Status: Acute Discharge Plan Disposition Patient Disposition: Against Medical Advice Condition: Fair Discharge Details Reason For Visit: Severe Right ICA stenosis with ataxia Admit Date/Time: 09/16/24 01:07 Admit Provider: Lg Rodriguez Attending Provider: Lg Rodriguez [facility] Hospital Course: 63 yo M who has not engaged in regular medical care, daily alcohol user, smoker, presented on 09/16 with acutely worse ataxia that had started 3 days prior. He was falling frequently when he tried to walk, felt dizzy and difficulty standing up. Workup in the ED included a CTA of his head and neck. There was no acute stroke but severe carotid stenosis on the right internal carotid artery (75%), and severe stenosis of the left subclavian artery (70%). neurology was consulted. They could not take him in transfer, they recommended Plavix and aspirin, and an MRI of the brain. MRI revealed both old and acute cerebellar infarct. Follow up was done with [facility] teleneurology after the MRI 09/18. They felt the subclavian disease around the origin of the vertebral artery could be related to his strokes, but there was no indication for acute surgical intervention and medical management was recommended. Surgical intervention could be considered non-acutely for the ICA stenosis. Vascular surgery referral was deferred to outpatient. He did not have events on telemetry. He had chronic untreated high blood pressure. He was started on lisinopril and then amlodipine. Goal is <130/80, and his blood pressure was still 160s/80s at discharge. The patient worked with PT and was not cleared for discharge due to unstable gait even with walker. Stroke rehab was recommended. He did not have insurance, and we recommended to stay for additional PT. He declined and asked to be discharged. He also should have an echocardiogram and 30 day cardiac care nurse, which were ordered as outpatient studies given he applied for and should qualify for medicaid insurance. Treatment options for alcohol use disorder and smoking were discussed. He declined additional medications. He did not have PCP or insurance. Application was placed for medicaid. Referral was made for community connections. Home Meds and New Rx's Prescriptions: New multivitamin [Multiple Vitamins] Tablet 1 tab PO QAM Qty: 100 0RF atorvastatin 40 mg Tablet 40 mg PO QPM Qty: 90 3RF acetaminophen 325 mg Tablet 650 mg PO Q4H PRN PRNQty: 30 0RF nicotine 14 mg/24 hr Patch 24 Hour 14 mg transdermal DAILY Qty: 30 0RF lisinopril 20 mg Tablet 20 mg PO DAILY Qty: 30 1RF clopidogrel 75 mg Tablet 75 mg PO DAILY Qty: 19 0RF amlodipine 5 mg Tablet 5 mg PO DAILY Qty: 30 1RF aspirin 81 mg Tablet,Delayed Release (Dr/Ec) 81 mg PO DAILY Qty: 90 3RF Discharge Instructions Instructions: Stroke (DC), Alcohol Use Disorder (DC) Additional Instructions: You have had multiple strokes in the part of your brain that affects your balance. To prevent more strokes, you should do the followin) take the two blood thinners (baby aspirin and clopidogrel). The clopidogrel you can stop in 3 weeks. The aspirin you should take the rest of your life. 2) take medication for cholesterol (atorvastatin) 3) avoid smoking 4) control the blood pressure (lisinopril and amlodipine are for this) You should follow up as an outpatient as planned. You need to follow with community connections to get insurance. There are additional tests you need and physical therapy for the stroke. It is important to avoid alcohol. The alcohol is toxic to the same area of the brain that was affected by the stroke. Stand Alone Forms: Nursing Discharge Form Referrals: Dean Melchor [ [facility] STAFF PHYSICIAN] - 10/03/24 10:00 am Activity:: Activity as Tolerated Equipment/Supplies:: Walker Diet:: As Tolerated Discharge Orders Discharge Orders: Discharge Order (Routine); Ordered 09/19/24 Ordered By: Eldon Phelps Other Ambulatory Orders: Cardiac Event Recorder (Routine) Timeframe: 1 Week Facility: [facility] - Location: Respiratory Therapy Ordered By: Eldon Phelps echocardiogram (Routine) Timeframe: 10 Day Facility: [facility] - Location: DIAGNOSTIC IMAGING Ordered By: Eldon Phelps Discharge Data Discharge Date/Time-TO BE ENTERED AT DEPARTURE: 09/19/24 15:36 DS: Summary Time Spent with Patient providing and/or coordinating discharge services: Greater than 30 minutes Status at Discharge Functional status at discharge: uses cane/walker Overall status at discharge: patient is not back to baseline Mental Status: mental status grossly normal Speech and Movement: speech and movement normal Mood: congruent mood Affect: normal affect Quality:SDOH Health Related Social Needs: No Data to Display Exam Narrative Exam Narrative: Alert and oriented, NAD, long dreaded galvan. CV RRR no M/G/R. Lung CTAB, normal effort. Abdomen is overall nontender. The lower extremities show no evidence of edema and appear to be well-perfused bilaterally. Neurologically CN 2-12 intact, normal FNF/HTS. No tremor. No focal numbness/weakness, normal speech. Gait with PT is unsteady. Psych Mental Status: mental status grossly normal Speech and Movement: speech and movement normal Mood: congruent mood Affect: normal affect DS: Data Vitals/I&O Vitals and I&O: Vital Signs Temperature 36.2 C L 09/19/24 07:42 Temperature Source Temporal Artery Scan 09/19/24 07:42 Pulse 62 09/19/24 07:42 Pulse 72 09/17/24 22:01 Respiratory Rate 16 09/19/24 07:42 Respiratory Effort Normal 09/16/24 03:29 Respiratory Depth Normal 09/16/24 03:29 Respiratory Pattern Normal 09/16/24 03:29 Blood Pressure 167/88 H 09/19/24 07:42 Blood Pressure Mean 110 09/17/24 22:01 Pulse Oximetry 96 09/19/24 07:42 Oxygen Delivery Method Room Air 09/19/24 07:42 Oxygen Flow Rate 0 09/19/24 07:42 Pain Level 0 09/19/24 07:42 Comment Standing (Left) 09/16/24 04:07 Intake & Output 09/18/24 09/19/24 09/19/24 23:59 11:59 23:59 Intake Total 370 / 370 Balance 370 / 370 Weight 61 kg Intake: IV Oral 360 / 360 Other: Urine Color Yellow Yellow Urine Appearance Clear Clear Urine Odor Normal Comment Patient voided ind. in the toilet. PFSH All Active Problems (Updated 09/18/24 @ 16:04 by Eldon Phelps) Cerebellar stroke (Acute) Subclavian artery stenosis, left (Acute) Carotid stenosis, right (Acute) Falls (Acute) Alcohol use disorder (Acute) Hypertension (Chronic) Ataxia (Acute) Social History Smoking/Tobacco Use Status: Current every day Tobacco Type: cigarettes Smoking packs per day: 50 Smoking cigarettes per day: 1,000.0 Tobacco: How many years used: 50 Smoking risk assessment performed?: Yes Alcohol Intake: current Alcohol Intake frequency: 3 or more drinks per day Alcohol type: beer Drug use: Never Housing: house Time Spent with Patient Time Spent with Patient: 45-69 minutes Time was spent: preparing to see the patient(eg.review tests), obtaining and/or reviewing separately otained hiistory, ordering medications,tests, procedures, referring, communicating with other health rn long term care, indepentently interpreting results, counseling the patient and care coordination
--- NOTE | 2024-09-19 15:33 | CMDISCH_ITS ---
Date of service: 09/19/24 Time of Service: 15:33 LACE Index Scoring Tool Questions: Length of Stay (in days): 3 Was the patient admitted via the E.D.?: Yes Comorbidities: Cerebrovascular Disease E.D. Visits: 1 Answers: Total Score: 8 Risk of Readmission: Low Risk Care Management Discharge Plan Reason for Hospitalization: ataxia, found to have an old and an acute CVA Discharge Plan: Venkat is discharged home today with no new services. Venkat worked with [employer] today, and his medicaid applications will be submitted. He should have active coverage within 48 hours. Venkat was given prescriptions for several new medications. He does not feel that he can afford them today. Pharmacy was called by CM, but the cost was not yet available and they will call CM with pricing. Again, he will have prescription coverage in 48 hours. Grupo was given a walker by PT. Grupo will have a hospital f/u on 10/03 at 0940 with Oliver Melchor at [facility]. He will continue per his plan of care and transport home with his mom. Patient/Family Education Needs: Review of discharge instructions, activity, limitations, and discuss ask me 3. SDOH Health Related Social Needs: No Data to Display
[2024-09-22 09:48] LABS: Thiamine (Vitamin B1), WB 161 nmol/L (70-180)
== END 2024-09-19 15:36 | disposition left against medical advice (07) | DRG 66 ==
LOC: ER 09-16 01:11 → ICU 09-16 07:45 → MS 09-17 22:55
PROVIDERS: Hospitalist; Nurse Practitioner Family; Admitting Provider Family Medicine; Emergency Provider Emergency Medicine; Responsible Provider Family Medicine; Visit Provider Family Medicine
DX: I63.89 Other cerebral infarction (principal); R29.6 Repeated falls; R27.0 Ataxia, unspecified; I10 Essential (primary) hypertension; R53.1 Weakness; R29.701 NIHSS score 1; I70.8 Atherosclerosis of other arteries; F17.210 Nicotine dependence, cigarettes, uncomplicated; F10.90 Alcohol use, unspecified, uncomplicated; Z86.73 Personal history of transient ischemic attack (TIA), and cerebral infarction without residual deficits; I65.21 Occlusion and stenosis of right carotid artery
CPT/HCPCS: 00123; 70496; 70498; 80048; 80053; 80061; 93005; 97112; 97116; 97161; 97530; 99285; 70551; 71046; 80320; 82140; 82607; 82746; 83735; 84425; 84443; 84484; 85025; 85610; 85730; 93010; 99223; 99232; 99233; 99239; J3490

== ENCOUNTER 2024-09-22 08:24 | Outpatient (CLI) | payer MEDICAID, SELFPAY | END 2024-09-22 08:25 | disposition home or self-care (01) | LOC: CARDOPNVT 08:24 | PROVIDERS: Visit Provider Family Medicine | DX: I63.9 Cerebral infarction, unspecified (principal) | CPT/HCPCS: 93270 ==

== ENCOUNTER 2024-10-03 12:35 | Outpatient (REF) | payer MEDICAID, SELFPAY ==
[2024-10-03 15:14] LABS: Abs Immature Grans 0.06 10^3/uL (0.0-0.06); Absolute Eosinophil Count 0.33 10^3/uL (0.0-0.7); Absolute Lymphocyte Count 1.12 10^3/uL (1.2-3.4); Absolute Neutrophil Count 5.24 10^3/uL (1.2-6.7); Basophils % 1.3 %; Eosinophils % 4.4 %; HCT 40.5 % (40.0-50.0); HGB 13.6 g/dL (13.5-17.5); Immature Grans % 0.8 %; MCH 30.8 pg (27.0-33.0); MCHC 33.6 % (32.0-36.0); MCV 92 fL (80-95); MPV 11.1 fL (8.0-11.0); Monocytes % 8.1 %; Neutrophils % 70.4 %; Platelet Count 269 10^3/uL (130-400); RBC 4.42 10^6/uL (4.36-5.78); RDW-SD 40.8 fL; WBC 7.45 10^3/uL (4.4-10.8)
[2024-10-03 15:31] LABS: ALT 39 U/L (16-63); AST 18 U/L (15-37); Albumin 3.1 g/dL (3.4-5.0); Alkaline Phosphatase 116 U/L (46-116); Anion Gap 5.8 mmol/L (3-11); BUN 13 mg/dL (7-18); Bilirubin, Total 0.3 mg/dL (0.2-1.0); CO2 33.2 mmol/L (21.0-32.0); CREATININE 0.9 mg/dL (0.70-1.30); Calcium 9.2 mg/dL (8.5-10.1); Chloride 104 mmol/L (98-107); Estimated GFR 96.57 (mL/min/1.73m2); Glucose 113 mg/dL (74-106); Potassium 4.1 mmol/L (3.5-5.1); Sodium 143 mmol/L (136-145); Total Protein 6.9 g/dL (6.4-8.2)
== END 2024-10-03 12:36 | disposition home or self-care (01) ==
LOC: NCHCN 12:35
PROVIDERS: Visit Provider Student in an Organized Health Care Education/Training Program
DX: I10 Essential (primary) hypertension (principal)
CPT/HCPCS: 80053; 85025

== ENCOUNTER 2024-10-10 07:31 | Outpatient (CLI) | payer MEDICAID, SELFPAY ==
--- NOTE | 2024-10-10 08:50 | W.CARDEVENT ---
Date of service: 10/10/24 Time of Service: 08:50 Cardiac Event Recorder Referring Provider:: Eldon Phelps Indications:: Cerebral infarction Cardiac Event Note: This is a cardiac event monitor. Patient was monitored for 2 days and 11 hours. Rhythm throughout was sinus with an average heart rate of 64. Minimum was 56, maximum 106. There was no atrial fibrillation, no high-grade AV block, no pauses greater than 3 seconds. No ventricular dysrhythmias were observed. No symptoms were reported
== END 2024-10-10 07:32 | disposition home or self-care (01) ==
LOC: CARDOPNVT 07:31
PROVIDERS: Visit Provider Internal Medicine Cardiovascular Disease
DX: I63.89 Other cerebral infarction (principal)
CPT/HCPCS: 93272

== ENCOUNTER 2024-12-21 12:42 | Outpatient (REF) | payer MEDICAID, SELFPAY ==
[2024-12-21 16:19] LABS: Calculated LDL 50 mg/dL (<100); Cholesterol 100 mg/dL (<200); HDL Cholesterol 37 mg/dL (>or=40); Triglyceride 69 mg/dL (<150)
== END 2024-12-21 12:43 | disposition home or self-care (01) ==
LOC: NCHCN 12:42
PROVIDERS: Visit Provider Student in an Organized Health Care Education/Training Program
DX: E78.5 Hyperlipidemia, unspecified (principal)
CPT/HCPCS: 80061